=== PATIENT | male | born 1980 | race Caucasian/White ===

== ENCOUNTER 2019-04-28 11:17 | Emergency (ER) | payer OTHER ==
[2019-04-28 11:48] VITALS: BP 137/74; PULSE 58; TEMP 98.4; BMI 21.5
--- NOTE | 2019-04-28 12:14 | PDOC ---
History of Present Illness - General Chief Complaint: Back Pain Stated Complaint: Testicular pain History Source: Patient Exam Limitations: No Limitations - History of Present Illness Initial Comments: 04/28/19 12:07 38-year-old male presents to the emergency room with complaints of left testicular pain worsened with movement over the past few days. Patient states pain intimately related to his left back but denies any urinary complaints or penile discharge. Patient states had inguinal hernia repair done 14 months ago and [place] and denies any postoperative complications. Patient denies any concern for STD. Timing/Duration: 1 week Severity: mild Associated Symptoms: reports: other Past History - Travel Traveled outside of the country in the last 30 days: No Close contact w/someone who was outside of country & ill: No - Past Medical History Allergies/Adverse Reactions: Allergies Allergy/AdvReac Type Severity Reaction Status Date / Time No Known Allergies Allergy Verified 04/28/19 11:49 Home Medications: Ambulatory Orders Naproxen [Naprosyn -] 500 mg PO BID #14 tablet 06/21/16 Tamsulosin HCl [Flomax] 0.4 mg PO DAILY #10 capsule 06/21/16 Kidney Stones: Yes - Surgical History Appendectomy: Yes - Suicide/Smoking/Psychosocial Hx Smoking History: Never smoked Have you smoked in the past 12 months: No Information on smoking cessation initiated: No Hx Alcohol Use: No Drug/Substance Use Hx: No Patient Lives Alone: No Lives with/in: spouse/SO Review of Systems - Review of Systems Able to Perform ROS?: No Is the patient limited Sudanese proficient: No Constitutional: No: Symptoms Reported HEENTM: No: Symptoms Reported Respiratory: No: Symptoms reported Cardiac (ROS): No: Symptoms Reported ABD/GI: No: Symptoms Reported : Yes: Testicular Pain (left) Musculoskeletal: No: Symptoms Reported Integumentary: No: Symptoms Reported Neurological: No: Symptoms reported Hematologic/Lymphatic: No: Symptoms Reported *Physical Exam - Vital Signs Last Vital Signs Temp Pulse Resp BP Pulse Ox 98.4 F 58 L 18 137/74 99 04/28/19 11:41 04/28/19 11:41 04/28/19 11:41 04/28/19 11:41 04/28/19 11:41 - Physical Exam General Appearance: Yes: Nourished, Appropriately Dressed. No: Apparent Distress HEENT: positive: EOMI, TERA, TMs Normal, Pharynx Normal. negative: Pale Conjunctivae Neck: positive: Supple Respiratory/Chest: positive: Lungs Clear, Normal Breath Sounds. negative: Respiratory Distress, Accessory Muscle Use Cardiovascular: positive: Regular Rhythm, Regular Rate. negative: Murmur Gastrointestinal/Abdominal: positive: Soft. negative: Tenderness Male Genitalia: positive: normal genitalia (uncircumsized), testicular tenderness (left ). negative: discharge, testicular mass, epididymus tender Musculoskeletal: negative: CVA Tenderness Extremity: positive: Normal Capillary Refill Integumentary: positive: Normal Color, Warm, Moist Neurologic: positive: Motor Strength 5/5 (ambulatory) ED Treatment Course - RADIOLOGY Radiology Studies Ordered: Category Date Time Status SCROTUM AND CONTENTS US [US] Stat Ultrasound 04/28/19 12:00 Ordered Medical Decision Making - Medical Decision Making 04/28/19 12:17 CC: left testicular pain x 1 week, had left inguinal hernia repair [address] [place] No other complaints Exam: left testicular tenderness. left healed inguinal incision non tender . No penile dc Plan: urine, g/chylam, u/s 04/28/19 13:31 Ultrasound shows a punctate left testicular calcification measuring 0.26 cm within the upper pole of the left testes. Small bilateral hydroceles are noted. Epididymal structures appear unremarkable. No varicocele noted. A possible left scrotal hernia described on the previous ultrasound studies are appreciated on this current exam. Patient recommended urology consultation as well as a 3 month follow-up ultrasound *DC/Admit/Observation/Transfer Diagnosis at time of Disposition: Testicular pain, left - Discharge Dispostion Disposition: HOME Condition at time of disposition: Good - Referrals Referrals: Nicho Reagan MD., MD [Staff Physician] - - Patient Instructions Printed Discharge Instructions: DI for Testicular Pain Additional Instructions: At this time I recommend that you follow-up with urology. The specialist who read your ultrasound is also recommending a follow-up ultrasound in 3 months. - Post Discharge Activity
[2019-04-28 14:15] LABS: PH,URINE 8.5 (5.0-8.0); URINE APPEARANCE CLEAR; URINE BILIRUBIN NEGATIVE (NEGATIVE); URINE COLOR YELLOW; URINE GLUCOSE (UA) NEGATIVE (NEGATIVE); URINE KETONE NEGATIVE (NEGATIVE); URINE LEUK ESTERASE NEGATIVE (NEGATIVE); URINE NITRITE NEGATIVE (NEGATIVE); URINE PROTEIN NEGATIVE (NEGATIVE)
== END 2019-04-28 13:43 | disposition home or self-care (01) ==
LOC: JER 11:17
DX: N50.812 Left testicular pain (principal); N43.3 Hydrocele, unspecified
CPT/HCPCS: 36415; 76870-TC; 81003; 87086; 87491; 87591; 99282-25